=== PATIENT | female | born 1975 | race Caucasian/White ===

== ENCOUNTER 2017-05-12 08:05 | Emergency (ER) | payer OTHER ==
[2017-05-12 11:03] LABS: URINE BLOOD (Dip) POC 2+ (NEGATIVE); URINE GLUCOSE (Dip) POC Negative (NEGATIVE); URINE KETONES (Dip) POC Negative (NEGATIVE); URINE LEUKOCYTE EST (Dip) POC 1+ (NEGATIVE); URINE NITRITE (Dip) POC Positive (NEGATIVE); URINE TOTAL PROTEIN POC 2+ (NEGATIVE)
[2017-05-12] MEDS: CEPHALEXIN 500 MG CAP PO (11:54)
[2017-05-12] MEDS: PHENAZOPYRIDINE 100 MG TAB PO (11:54)
== END 2017-05-12 13:24 | disposition home or self-care (01) ==
LOC: FTE 08:05
DX: N30.00 Acute cystitis without hematuria (principal)
CPT/HCPCS: 81003; 99283

== ENCOUNTER 2017-09-02 19:59 | Emergency (ER) | payer SELFPAY, OTHER, MEDICAID | END 2017-09-02 23:40 | disposition home or self-care (01) | LOC: FTE 19:59 | DX: J20.9 Acute bronchitis, unspecified (principal) | CPT/HCPCS: 71046; 99284-25 ==

== ENCOUNTER 2017-11-26 08:47 | Emergency (ER) | payer OTHER ==
[2017-11-26] MEDS: IBUPROFEN 600 MG TAB PO (09:18)
== END 2017-11-26 11:18 | disposition home or self-care (01) ==
LOC: FTE 08:47
DX: S62.356A Nondisplaced fracture of shaft of fifth metacarpal bone, right hand, initial encounter for closed fracture (principal); W01.0XXA Fall on same level from slipping, tripping and stumbling without subsequent striking against object, initial encounter; Y92.9 Unspecified place or not applicable
CPT/HCPCS: 29125; 73130-RT; 99283-25

== ENCOUNTER 2018-04-22 07:58 | Emergency (ER) | payer OTHER | END 2018-04-22 08:25 | disposition home or self-care (01) | LOC: FTE 07:58 | DX: H65.91 Unspecified nonsuppurative otitis media, right ear (principal) | CPT/HCPCS: 99283; Z7502 ==

== ENCOUNTER 2018-05-13 18:50 | Emergency (ER) | payer OTHER | END 2018-05-13 22:32 | disposition home or self-care (01) | LOC: FTE 22:32 | DX: J11.1 Influenza due to unidentified influenza virus with other respiratory manifestations (principal) | CPT/HCPCS: 99283; Z7502 ==

== ENCOUNTER → 2018-10-20 | Emergency (ER) | payer OTHER ==
[2018-10-20] MEDS: IBUPROFEN 800 MG TAB PO (13:35)
== END | disposition home or self-care (01) ==
LOC: FTE 13:07
DX: S20.219A Contusion of unspecified front wall of thorax, initial encounter (principal); V49.49XA Driver injured in collision with other motor vehicles in traffic accident, initial encounter
CPT/HCPCS: 71045; 99283-25